=== PATIENT | male | born 1950 | race Caucasian/White ===

== ENCOUNTER → 2017-01-19 | Outpatient (CLI) | payer OTHER | END | disposition home or self-care (01) | LOC: US 07:22 | DX: I71.4 Abdominal aortic aneurysm, without rupture (principal); I10 Essential (primary) hypertension; N28.89 Other specified disorders of kidney and ureter ==

== ENCOUNTER → 2019-05-08 | Outpatient (CLI) | payer OTHER | END | disposition home or self-care (01) | LOC: CT 14:36 | DX: D71 Functional disorders of polymorphonuclear neutrophils (principal); N28.1 Cyst of kidney, acquired; J43.9 Emphysema, unspecified; Z72.0 Tobacco use ==

== ENCOUNTER → 2019-05-22 | Outpatient (CLI) | payer OTHER | END | disposition home or self-care (01) | LOC: US 00:16 | DX: I08.0 Rheumatic disorders of both mitral and aortic valves (principal); I71.4 Abdominal aortic aneurysm, without rupture; R01.1 Cardiac murmur, unspecified; I25.10 Atherosclerotic heart disease of native coronary artery without angina pectoris; Z72.0 Tobacco use; R10.9 Unspecified abdominal pain ==